=== PATIENT | female | born 1990 | race Caucasian/White ===

== ENCOUNTER 2018-11-16 19:33 | Emergency (ER) | payer MEDICAID ==
[~2018-11-16] VITALS: Ht 157.5 cm; Wt 51.4 kg
[~2018-11-16 19:33] MED LIST: ALPR-624 PO
[2018-11-16 19:47] VITALS: BP 134/83
== END 2018-11-16 22:31 | disposition left against medical advice (07) ==
LOC: ER 19:33
DX: R11.2 Nausea with vomiting, unspecified (principal); R10.9 Unspecified abdominal pain; Z53.21 Procedure and treatment not carried out due to patient leaving prior to being seen by health care provider; Z79.899 Other long term (current) drug therapy

== ENCOUNTER 2018-11-24 09:30 | Emergency (ER) | payer MEDICAID ==
[~2018-11-24] VITALS: Ht 157.5 cm; Wt 49.0 kg
[2018-11-24 11:17] VITALS: BP 106/71
== END 2018-11-24 11:18 | disposition home or self-care (01) ==
LOC: ER 09:30
DX: F11.90 Opioid use, unspecified, uncomplicated (principal); F15.90 Other stimulant use, unspecified, uncomplicated; Z79.899 Other long term (current) drug therapy; Z98.890 Other specified postprocedural states
CPT/HCPCS: 99281

== ENCOUNTER 2023-11-26 07:52 | Emergency (ER) | payer MEDICAID ==
[~2023-11-26] VITALS: Ht 157.5 cm; Wt 53.0 kg
[2023-11-26 07:53] VITALS: TEMP 98
[2023-11-26 08:02] VITALS: BP 131/83; PULSE 77; RESP 14; O2SAT 97
[2023-11-26] MEDS ORDERED: ONDA4TAB12 PO (08:24)
[2023-11-26] MEDS: ondansetron 4mg rapidly disintigrating tab PO ONE (08:32)
== END 2023-11-26 08:50 | disposition home or self-care (01) ==
LOC: ER 07:53
DX: R11.2 Nausea with vomiting, unspecified (principal); F19.239 Other psychoactive substance dependence with withdrawal, unspecified; F15.90 Other stimulant use, unspecified, uncomplicated; Z79.899 Other long term (current) drug therapy
CPT/HCPCS: 99283

== ENCOUNTER 2023-11-29 08:12 | Emergency (ER) | payer MEDICAID ==
[~2023-11-29] VITALS: Ht 157.5 cm; Wt 51.1 kg
[~2023-11-29 08:12] MED LIST changes: +ONDA4TAB12 PO
[2023-11-29 08:17] VITALS: BP 144/93; PULSE 50; RESP 14; TEMP 97.5; O2SAT 100
[2023-11-29] MEDS: ondansetron 4mg rapidly disintigrating tab PO ONE (08:43)
[2023-11-29] MEDS ORDERED: ONDA4TAB12 PO (09:23)
== END 2023-11-29 09:29 | disposition home or self-care (01) ==
LOC: ER 08:12
DX: R11.2 Nausea with vomiting, unspecified (principal); F11.23 Opioid dependence with withdrawal; F15.90 Other stimulant use, unspecified, uncomplicated; Z79.899 Other long term (current) drug therapy
CPT/HCPCS: 99283

== ENCOUNTER 2025-05-24 17:09 | Emergency (ER) | payer MEDICAID ==
[~2025-05-24] VITALS: Ht 157.5 cm; Wt 54.5 kg
[~2025-05-24 17:09] MED LIST changes: +ONDA-243 PO; -ONDA4TAB12 PO
[2025-05-24 17:16] VITALS: BP 122/76; PULSE 105; RESP 17; TEMP 97.8; O2SAT 98
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
== END 2025-05-24 17:40 | disposition home or self-care (01) ==
LOC: ER 17:10
DX: S00.81XA Abrasion of other part of head, initial encounter (principal); F15.90 Other stimulant use, unspecified, uncomplicated; F11.90 Opioid use, unspecified, uncomplicated; Z72.89 Other problems related to lifestyle; Z79.899 Other long term (current) drug therapy; V87.7XXA Person injured in collision between other specified motor vehicles (traffic), initial encounter; Y93.89 Activity, other specified; Y92.410 Unspecified street and highway as the place of occurrence of the external cause; Y99.8 Other external cause status
CPT/HCPCS: 99283